=== PATIENT | male | born 1960 | race Caucasian/White ===

== ENCOUNTER 2017-10-31 09:32 | Inpatient (IN) | payer OTHER ==
[~2017-10-31] VITALS: Ht 185.4 cm; Wt 102.5 kg
[2017-10-31 10:01] VITALS: BP 140/91; PULSE 104; RESP 20; TEMP 98.1; O2SAT 95
--- NOTE | 2017-10-31 10:39 | RADRPT ---
EXAM DATE/TIME: 10/31/2017 10:22 [facility] COMPARISON: No previous studies available for comparison. INDICATIONS : Constipation. MEDICAL HISTORY : None. SURGICAL HISTORY : Hernia repair. ENCOUNTER: Initial ACUITY: 1 day PAIN SCORE: 8/10 LOCATION: Bilateral abdomen FINDINGS: Supine view of the abdomen was performed. The abdominal bowel gas pattern is abnormal in appearance. There is a lucent mildly distended small bowel are noted. Gas and stool are present in the colon whi ch is not distended. There is no evidence of mass effect. Post surgical clips are seen in the right upper quadrant presumably from cholecystectomy. CONCLUSION: 1. Air-filled loops of mildly distended small bowel which may represent an early ileus. 2. Postsurgical clips right upper quadrant. Francis Andrade MD on October 31, 2017 at 10:35 Board Certified Radiologist. This report was verified electronically.
[2017-10-31 11:05] VITALS: BP 140/97; PULSE 94; RESP 18; O2SAT 96
[2017-10-31] MEDS ORDERED: LACT1CAP19 (11:09)
[2017-10-31 11:37] LABS: BILIRUBIN, URINE NEG (NEG); BLOOD, URINE NEG (NEG); GLUCOSE,URINE NEG (NEG); HYALINE CAST, URINE 8 /lpf (RARE); KETONE, URINE 10 mg/dL (NEG); MUCUS URINE MOD /lpf (OCC); NITRITE,URINE NEG (NEG); PH, URINE 6.5 (5.0-8.5); SQUAMOUS EPITHELIAL CELL URINE 1 /hpf (0-5); URINE COLOR YELLOW (YELLW/STRAW); URINE LEUKOCYTE ESTERASE NEG (NEG)
[2017-10-31 12:25] LABS: AUTOMATED NEUTROPHIL # 14.2 TH/MM3 (1.8-7.7); BASOPHIL # 0.1 TH/MM3 (0-0.2); BASOPHIL % 0.5 % (0.0-2.0); EOSINOPHIL % 0.1 % (0.0-4.0); HEMATOCRIT 48.7 % (39.0-51.0); LYMPH % 6.2 % (9.0-44.0); MEAN CELL VOLUME 88.6 FL (80.0-100.0); MEAN PLATELET VOLUME 8.3 FL (7.0-11.0); MONO % 5.6 % (0.0-8.0); MONOCYTE # 0.9 TH/MM3 (0-0.9); NEUT % 87.6 % (16.0-70.0); PLATELET COUNT 339 TH/MM3 (150-450); RED CELL DISTRIBUTION WIDTH 13.2 % (11.6-17.2); WHITE BLOOD COUNT 16.2 TH/MM3 (4.0-11.0)
[2017-10-31 12:40] LABS: PROTHROMBIN TIME - PATIENT 10.6 SEC (9.8-11.6)
[2017-10-31 12:45] LABS: ALBUMIN 4.2 GM/DL (3.4-5.0); AST (GOT) 19 U/L (15-37); BICARBONATE 31.8 MEQ/L (21.0-32.0); BLOOD UREA NITROGEN 13 MG/DL (7-18); CALCIUM 10.2 MG/DL (8.5-10.1); CHLORIDE 97 MEQ/L (98-107); CREATININE 1.12 MG/DL (0.60-1.30); GLOMERULAR FILTRATION RATE 68 ML/MIN (>89); GLUCOSE,RANDOM 119 MG/DL (74-106); SODIUM (NA) 138 MEQ/L (136-145)
[2017-10-31 12:48] LABS: ALKALINE PHOSPHATASE 61 U/L (45-117); ALT (GPT) 30 U/L (12-78); TOTAL BILIRUBIN ADULT 1.1 MG/DL (0.2-1.0); TOTAL PROTEIN 8.6 GM/DL (6.4-8.2)
--- NOTE | 2017-10-31 12:50 | PD ---
HPI Chief Complaint: GI Complaint Time Seen by Provider: 11:15 Travel History International Travel<30 days: No Contact w/Intl Traveler<30days: No Traveled to known affect area: No History of Present Illness HPI This is a 56-year-old gentleman with a history of bowel obstructions 4, presents today with complaints of abdominal swelling and nausea vomiting. Patient states that he feels as though he has another bowel obstruction. Patient reports that he has had for previous bowel obstructions and has had mesh placed in his abdominal wall for abdominal wall hernias. He states that he did last time he had a mesh placed he was told that he had multiple adhesions. Patient denies any fevers, chills. He does report that he has passed some gas. He reports bilious type emesis today. There are no other complaints at the time of my examination. PFSH Past Medical History Diabetes: No Diminished Hearing: No GERD: Yes Tetanus Vaccination: > 5 Years Influenza Vaccination: No Past Surgical History Abdominal Surgery: Yes (HERNIA REPAIR X3) Social History Alcohol Use: Yes (BEER DAILY) Tobacco Use: No Substance Use: No Allergies-Medications (Allergen,Severity, Reaction): Coded Allergies: No Known Allergies (Verified Allergy, Severe, 10/31/17) Reported Meds & Prescriptions Reported Meds & Active Scripts Active Reported Probiotic (Lactobacillus Combination No.4) 3 Billion Cell Capsule Review of Systems Except as stated in HPI: all other systems reviewed are Neg General / Constitutional: No: Fever, Chills HENT: No: Headaches, Lightheadedness Cardiovascular: No: Chest Pain or Discomfort, Palpitations Respiratory: No: Cough, Shortness of Breath Gastrointestinal: Positive: Nausea, Vomiting, Abdominal Pain (Distention), No: Diarrhea, Hematemesis Genitourinary: No: Dysuria, Decreased Urinary Output Musculoskeletal: No: Weakness, Pain Neurologic: No: Weakness, Dizziness, Syncope Physical Exam Narrative GENERAL: Well-developed well-nourished male in no acute respiratory distress SKIN: Focused skin assessment warm/dry. HEAD: Atraumatic. Normocephalic. EYES: Pupils equal and round. No scleral icterus. No injection or drainage. ENT: No nasal bleeding or discharge. Mucous membranes pink and moist. NECK: Trachea midline. No JVD. CARDIOVASCULAR: Regular rate and rhythm. No murmur appreciated. RESPIRATORY: No accessory muscle use. Clear to auscultation. Breath sounds equal bilaterally. GASTROINTESTINAL: Abdomen soft, distended. There is no rebound or guarding. Patient does have midline scar. He has palpable mesh in his abdominal wall under his skin. MUSCULOSKELETAL: No obvious deformities. No clubbing. No cyanosis. No edema. NEUROLOGICAL: Awake and alert. No obvious cranial nerve deficits. Motor grossly within normal limits. Normal speech. PSYCHIATRIC: Appropriate mood and affect; insight and judgment normal. Data Data Last Documented VS Vital Signs Date Time Temp Pulse Resp B/P (MAP) Pulse Ox O2 Delivery O2 Flow Rate FiO2 10/31/17 11:05 94 18 140/97 (111) 96 Room Air 10/31/17 10:01 98.1 Orders Orders Complete Blood Count With Diff (10/31/17 10:04) Comprehensive Metabolic Panel (10/31/17 10:04) Urinalysis - C+S If Indicated (10/31/17 10:04) Iv Access Insert/Monitor (10/31/17 10:04) Oxygen Administration (10/31/17 10:04) Oximetry (10/31/17 10:04) Lipase (10/31/17 10:04) Act Partial Throm Time (Ptt) (10/31/17 10:05) Prothrombin Time / Inr (Pt) (10/31/17 10:05) Abdomen, Kub Only (10/31/17 ) Vascular Access Team Consult/P PRN (10/31/17 11:33) Vascular Poc Ultrasound (10/31/17 ) Admit Order (Ed Use Only) (10/31/17 13:37) Labs Laboratory Tests Test 10/31/17 10:30 10/31/17 12:15 Urine Color YELLOW Urine Turbidity CLEAR Urine pH 6.5 Urine Specific [place] 1.019 Urine Protein 30 mg/dL Urine Glucose (UA) NEG mg/dL Urine Ketones 10 mg/dL Urine Occult Blood NEG Urine Nitrite NEG Urine Bilirubin NEG Urine Urobilinogen LESS THAN 2.0 MG/DL Urine Leukocyte Esterase NEG Urine RBC LESS THAN 1 /hpf Urine WBC 1 /hpf Urine Squamous Epithelial Cells 1 /hpf Urine Hyaline Casts 8 /lpf Urine Mucus MOD /lpf Microscopic Urinalysis Comment CULT NOT INDICATED White Blood Count 16.2 TH/MM3 Red Blood Count 5.50 MIL/MM3 Hemoglobin 17.0 GM/DL Hematocrit 48.7 % Mean Corpuscular Volume 88.6 FL Mean Corpuscular Hemoglobin 31.0 PG Mean Corpuscular Hemoglobin Concent 35.0 % Red Cell Distribution Width 13.2 % Platelet Count 339 TH/MM3 Mean Platelet Volume 8.3 FL Neutrophils (%) (Auto) 87.6 % Lymphocytes (%) (Auto) 6.2 % Monocytes (%) (Auto) 5.6 % Eosinophils (%) (Auto) 0.1 % Basophils (%) (Auto) 0.5 % Neutrophils # (Auto) 14.2 TH/MM3 Lymphocytes # (Auto) 1.0 TH/MM3 Monocytes # (Auto) 0.9 TH/MM3 Eosinophils # (Auto) 0.0 TH/MM3 Basophils # (Auto) 0.1 TH/MM3 CBC Comment DIFF FINAL Differential Comment Prothrombin Time 10.6 SEC Prothromb Time International Ratio 1.0 RATIO Activated Partial Thromboplast Time 24.3 SEC Blood Urea Nitrogen 13 MG/DL Creatinine 1.12 MG/DL Random Glucose 119 MG/DL Total Protein 8.6 GM/DL Albumin 4.2 GM/DL Calcium Level 10.2 MG/DL Alkaline Phosphatase 61 U/L Aspartate Amino Transf (AST/SGOT) 19 U/L Alanine Aminotransferase (ALT/SGPT) 30 U/L Total Bilirubin 1.1 MG/DL Sodium Level 138 MEQ/L Potassium Level 3.9 MEQ/L Chloride Level 97 MEQ/L Carbon Dioxide Level 31.8 MEQ/L Anion Gap 9 MEQ/L Estimat Glomerular Filtration Rate 68 ML/MIN Lipase 101 U/L MDM Medical Decision Making Medical Screen Exam Complete: Yes Emergency Medical Condition: Yes Differential Diagnosis Partial versus complete bowel obstruction versus gastroenteritis Narrative Course 56-year-old male with a history of previous small bowel obstructions, hernia repair 3, who presents today with complaints of nausea vomiting. Patient feels as though he has another obstruction. Patient has multiple air-fluid levels noted on plain upright x-ray. He has had an NG tube placed its drained roughly 2300 cc of bilious fluid. He states he feels much improved. White count was 16,000. He has no fever. His belly is soft to touch. He does not appear to have a surgical belly at this time. He will be admitted to the resident service under Dr. Spaulding. The hope is that the NG suction will reverse the obstruction without requiring surgical procedure. Diagnosis Primary Impression: Small bowel obstruction Admitting Information Admitting Physician Requests: Admit Dayton Donis MD Oct 31, 2017 12:50
[2017-10-31 14:23] VITALS: BP 142/78; PULSE 91; RESP 18; O2SAT 97
--- NOTE | 2017-10-31 14:23 | HHI.HP ---
HPI Service Family Medicine Primary Care Physician No Primary Care Physician Admission Diagnosis small bowel obstruction, leukocytosis, Diagnoses: International Travel<30 Days: No Contact w/Intl Traveler<30days: No Known Affected Area: No History of Present Illness Mr. Jewell is a 56-year-old white male with past medical history of small bowel obstruction presenting with vomiting and bloating. He stated that this started Saturday. After he ate dinner he started feeling bloated. He went to sleep, woke up around 2330, and still felt bloated. He stated that it had gotten worse. The vomiting started at 0130 on Saturday morning the vomitus was clear in color, no blood. He vomited a few times at morning and did not vomit during the day. He also had heartburn. He tried drinking water but i the heartburn worse. He also tried to drink vitamin water and sit up. He also tried laying on his left side which helped with the bloating by making him burp. His last bowel movement was yesterday morning. He described it as being hard like pellets and took 2 hours to pass, he usually has a quick bowel movement. Is also been experiencing cramping in his legs throughout the night. He tried walking around a lot to help with the bloating. However, when he threw up again this morning he decided to come into the hospital. The vomit was brown like beef broth. He also had a lot of gurgling in his abdomen and had more heartburn. He describes his abdominal pain as feeling like a lot of pressure that radiates to his back. No fevers or chills, no chest pain, shortness of breath. Has no PCP. Is a history of 4 previous SBO's. The last of which was in June. (Maria Luisa Carter MD R1) Review of Systems Constitutional: DENIES: Fever, Chills Eyes: DENIES: Blurred vision Ears, nose, mouth, throat: DENIES: Nasal discharge Respiratory: COMPLAINS OF: Cough (due to the heartburn), DENIES: Shortness of breath Cardiovascular: DENIES: Chest pain Gastrointestinal: DENIES: Black stools, Bloody stools Genitourinary: DENIES: Dysuria Musculoskeletal: COMPLAINS OF: Muscle aches (cramping in bilateral legs) Integumentary: DENIES: Rash Neurologic: DENIES: Headache, Localized weakness, Paresthesias (Maria Lusia Carter MD R1) Past Family Social History Past Medical History SBOx4- last one was in June Past Surgical History Hernia repair Abdominal surgery to correct volvulus [place] teeth extraction Reported Medications Reported Meds & Active Scripts Active Reported Probiotic (Lactobacillus Combination No.4) 3 Billion Cell Capsule (Maria Luisa Carter MD R1) Allergies: Coded Allergies: No Known Allergies (Verified Allergy, Severe, 10/31/17) Family History Mother- healthy, gallbladder issues Father- from COPD Social History lives with his Works for [employer] has 3 beers a day, no tobacco use, no illicit drug use (Maria Luisa Carter MD R1) Physical Exam Vital Signs Vital Signs Date Time Temp Pulse Resp B/P (MAP) Pulse Ox O2 Delivery O2 Flow Rate FiO2 10/31/17 11:05 94 18 140/97 (111) 96 Room Air 10/31/17 10:56 18 10/31/17 10:01 98.1 104 20 140/91 (107) 95 Physical Exam GENERAL: This is a well-nourished, well-developed patient sitting in bed with NG tube suctioning dark green fluid, in no apparent distress. SKIN: No rashes, ecchymoses or lesions. Cool and dry. HEAD: Atraumatic. Normocephalic. EYES: Pupils equal round and reactive. Extraocular motions intact. No scleral icterus. No drainage. Injected bilaterally ENT: Nose without bleeding, purulent drainage or septal hematoma. Throat without erythema, tonsillar hypertrophy or exudate. Uvula midline. Airway patent. NECK: Trachea midline. No JVD or lymphadenopathy. Supple, nontender, no meningeal signs. CARDIOVASCULAR: Regular rate and rhythm without murmurs, gallops, or rubs. RESPIRATORY: Clear to auscultation. Breath sounds equal bilaterally. No wheezes , rales, or rhonchi. GASTROINTESTINAL: Abdomen soft, non-tender, distended. No hepato-splenomegaly, or palpable masses. No guarding or rebound tenderness. MUSCULOSKELETAL: Extremities without clubbing, cyanosis, or edema. No joint tenderness, effusion, or edema noted. No calf tenderness. NEUROLOGICAL: Awake and alert.Motor and sensory grossly within normal limits. Normal speech. Laboratory Laboratory Tests Test 10/31/17 10:30 10/31/17 12:15 Urine Color YELLOW Urine Turbidity CLEAR Urine pH 6.5 Urine Specific [place] 1.019 Urine Protein 30 Urine Glucose (UA) NEG Urine Ketones 10 Urine Occult Blood NEG Urine Nitrite NEG Urine Bilirubin NEG Urine Urobilinogen LESS THAN 2.0 Urine Leukocyte Esterase NEG Urine RBC LESS THAN 1 Urine WBC 1 Urine Squamous Epithelial Cells 1 Urine Hyaline Casts 8 Urine Mucus MOD Microscopic Urinalysis Comment CULT NOT INDICATED White Blood Count 16.2 Red Blood Count 5.50 Hemoglobin 17.0 Hematocrit 48.7 Mean Corpuscular Volume 88.6 Mean Corpuscular Hemoglobin 31.0 Mean Corpuscular Hemoglobin Concent 35.0 Red Cell Distribution Width 13.2 Platelet Count 339 Mean Platelet Volume 8.3 Neutrophils (%) (Auto) 87.6 Lymphocytes (%) (Auto) 6.2 Monocytes (%) (Auto) 5.6 Eosinophils (%) (Auto) 0.1 Basophils (%) (Auto) 0.5 Neutrophils # (Auto) 14.2 Lymphocytes # (Auto) 1.0 Monocytes # (Auto) 0.9 Eosinophils # (Auto) 0.0 Basophils # (Auto) 0.1 CBC Comment DIFF FINAL Differential Comment Prothrombin Time 10.6 Prothromb Time International Ratio 1.0 Activated Partial Thromboplast Time 24.3 Blood Urea Nitrogen 13 Creatinine 1.12 Random Glucose 119 Total Protein 8.6 Albumin 4.2 Calcium Level 10.2 Alkaline Phosphatase 61 Aspartate Amino Transf (AST/SGOT) 19 Alanine Aminotransferase (ALT/SGPT) 30 Total Bilirubin 1.1 Sodium Level 138 Potassium Level 3.9 Chloride Level 97 Carbon Dioxide Level 31.8 Anion Gap 9 Estimat Glomerular Filtration Rate 68 Lipase 101 (Maria Luisa Carter MD R1) Result Diagram: 10/31/17 1215 10/31/17 1215 Imaging Last Impressions Abdomen X-Ray 10/31/17 0000 Signed Impressions: Service Date/Time: October 10:22 - CONCLUSION: 1. Air- filled loops of mildly distended small bowel which may represent an early ileus. 2. Postsurgical clips right upper quadrant. Francis Andrade MD (Maria Luisa Carter MD R1) Caprini VTE Risk Assessment Caprini VTE Risk Assessment: Mod/High Risk (score >= 2) Caprini Risk Assessment Model Point Value = 1 Point Value = 2 Point Value = 3 Point Value = 5 Age 41-60 Minor surgery BMI > 25 kg/m2 Swollen legs Varicose veins or History of unexplained or recurrent spontaneous Oral contraceptives or hormone replacement Sepsis (< 1 month) Serious lung disease, including pneumonia (< 1 month) Abnormal pulmonary function Acute myocardial infarction Congestive heart failure (< 1 month) History of inflammatory bowel disease Medical patient at bed rest Age 61-74 Arthroscopic surgery Major open surgery (> 45 min) Laparoscopic surgery (> 45 min) Malignancy Confined to bed (> 72 hours) Immobilizing plaster cast Central venous access Age >= 75 History of VTE Family history of VTE Factor V Leiden Prothrombin [id number] Lupus anticoagulant Anticardiolipin antibodies Elevated serum homocysteine Heparin-induced thrombocytopenia Other congenital or acquired thrombophilia Stroke (< 1 month) Elective arthroplasty Hip, pelvis, or leg fracture Acute spinal cord injury (< 1 month) Prophylaxis Regimen Total Risk Factor Score Risk Level Prophylaxis Regimen 0-1 Low Early ambulation 2 Moderate Order ONE of the following: *Sequential Compression Device (SCD) *Heparin 5000 units SQ BID 3-4 Higher Order ONE of the following medications: *Heparin 5000 units SQ TID *Enoxaparin/Lovenox 40 mg SQ daily (WT < 150 kg, CrCl > 30 mL/min) *Enoxaparin/Lovenox 30 mg SQ daily (WT < 150 kg, CrCl > 10-29 mL/min) *Enoxaparin/Lovenox 30 mg SQ BID (WT < 150 kg, CrCl > 30 mL/min) AND/OR *Sequential Compression Device (SCD) 5 or more Highest Order ONE of the following medications: *Heparin 5000 units SQ TID (Preferred with Epidurals) *Enoxaparin/Lovenox 40 mg SQ daily (WT < 150 kg, CrCl > 30 mL/min) *Enoxaparin/Lovenox 30 mg SQ daily (WT < 150 kg, CrCl > 10-29 mL/min) *Enoxaparin/Lovenox 30 mg SQ BID (WT < 150 kg, CrCl > 30 mL/min) AND *Sequential Compression Device (SCD) (Maria Luisa Carter MD R1) Assessment and Plan Assessment and Plan 56-year-old white male with past medical history significant for small bowel obstructions presenting with abdominal distention and vomiting. Likely a repeat small bowel obstruction. He is being admitted to our inpatient service. Code Status Full code Discussed Condition With Dr. Chi (Maria Luisa Carter MD R1) Attending Attestation The patient has been seen and examined. The chart and all resident notes have been reviewed. I agree that inpatient care is appropriate and that a two midnight stay is expected for the reasons documented in the resident history and physical. I have discussed this with the resident and certify the resident s order for inpatient admission. Patient seen and examined. Case reviewed and discussed Please refer to resident H&P for further details regarding HPI, ROS, PMH, SurgHx , FH and SocHx In summary, patient is a pleasant 56yoM with a history of hernia repair and prior SBO. He presents today with a 2 day history of nausea, bilious vomiting and abdominal distention similar to prior episodes. He was informed of adhesions previously, and is concerned that this has occurred again. Patient is seen in the ED, no complaints of pain. GENERAL: wdwn male, NAD SKIN: Warm and dry. NO rashes HEAD: Normocephalic. AT EYES: No scleral icterus. No injection or drainage. NET: OP clear. MMM. NGT to suction. NECK: Supple, trachea midline. No JVD or lymphadenopathy. CARDIOVASCULAR: Regular rate and rhythm without audible murmurs, gallops, or rubs. RESPIRATORY: Breath sounds equal and clear bilaterally. No accessory muscle use. GASTROINTESTINAL: Abdomen soft, distended, more firm in upper quadrants. non- tender, Hypoactive BS in lower quadrants and tinkering BS in upper. MUSCULOSKELETAL: No cyanosis, or edema. No calf tenderness. BACK: Nontender without obvious deformity. No CVA tenderness. NEURO: Awake and alert. Normal speech. CN grossly intact. A/P: 56yoM admitted with: SBO Hx abdominal surgeries EtOh dependence Leukocytosis Hypergylcemia Hypercalcemia NGT to suction IVF Flat/upright AXR in am Ambulation Avoid opiates Monitor Is/Os GS consulted- appreciate recs Patient seen and examined. Case reviewed and discussed Agree with plan of care as discussed with me and documented in the resident note. (Shawna Spaulding MD) Problem List: (1) Small bowel obstruction ICD Codes: K56.609 - Unspecified intestinal obstruction, unspecified as to partial versus complete obstruction Status: Acute Plan: With the significant past medical history of 4 previous small bowel obstructions presenting with abdominal distention and vomiting. This is likely a repeat small bowel obstruction versus ileus versus gastroenteritis. Patient met SIRS criteria upon admission with leukocytosis to 16.2 (neutrophil predominant) and tachycardia. Abdominal x-ray on admission shows air-filled loops of mildly distended small bowel which could may represent an early ileus. -NG tube was placed in ED to low intermittent suction. Placement was confirmed with CXR. -NPO -Monitor I's and O's -Serum pro-calcitonin pending -General surgery consult, appreciate recommendations (2) FEN Status: Acute Plan: Fluids:NS @ 143ml/hr Electrolytes: monitor and replete as needed Nutrition: NPO DVT Prophylaxis: Early ambulation. bilateral SCDs GI Prophylaxis: Not indicated at this time (Maria Luisa Carter MD R1) Physician Certification 2 Midnight Certification Type: Admission for Inpatient Services Order for Inpatient Services The services are ordered in accordance with Medicare regulations or non- Medicare payer requirements, as applicable. In the case of services not specified as inpatient-only, they are appropriately provided as inpatient services in accordance with the 2-midnight benchmark. Estimated LOS (days): 2 days is the estimated time the patient will need to remain in the hospital, assuming treatment plan goals are met and no additional complications. Post-Hospital Plan: Home (Maria Luisa Carter MD R1) Maria Luisa Carter MD R1 Oct 31, 2017 14:23 Shawna Spaulding MD Oct 31, 2017 22:50
[2017-10-31] MEDS ORDERED: NALOXONE HCL 0.4 MG/ML AMP IV PUSH PRN (15:00)
[2017-10-31] MEDS ORDERED: SODIUM CHLORIDE 0.9% FLUSH 10 ML FLUSH IV FLUSH PRN (15:00)
[2017-10-31] MEDS ORDERED: MORPHINE SULFATE 2 MG/ML SYRINGE IV PUSH PRN ×2 (15:00)
[2017-10-31] MEDS: SODIUM CHLORIDE 0.9% FLUSH 10 ML FLUSH IV FLUSH SCH ×2 (15:00→20:34)
[2017-10-31] MEDS ORDERED: ONDANSETRON HCL 4 MG/2 ML VIAL IVP PRN (15:00)
[2017-10-31] MEDS ORDERED: LORazepam 2 MG TAB PO PRN (15:30)
[2017-10-31] MEDS ORDERED: LORazepam 2 MG/ML VIAL IV PUSH PRN ×4 (15:30)
[2017-10-31] MEDS ORDERED: LORazepam 1 MG TAB PO PRN (15:30)
[2017-10-31] MEDS ORDERED: FLUMAZENIL 0.5 MG/5 ML VIAL IV PUSH PRN (15:30)
--- NOTE | 2017-10-31 15:36 | RADRPT ---
EXAM DATE/TIME: 10/31/2017 15:16 [facility] COMPARISON: ABDOMEN KUB ONLY, October 31, 2017, 10:22. INDICATIONS : Evaluate lung status. Pneumonia per order. MEDICAL HISTORY : None. SURGICAL HISTORY : Hernia repair. ENCOUNTER: Initial ACUITY: 1 day PAIN SCORE: 0/10 LOCATION: Bilateral chest FINDINGS: There is an NGT in the stomach. Linear platelike airspace disease in the right lung base. Cardiomedia stinal contours are within normal limits. Bony thorax is intact. CONCLUSION: 1. NGT in the stomach. 2. Platelike airspace disease in the right lung base, presumably atelectasis. Davie Lopez MD on October 31, 2017 at 15:33 Board Certified Radiologist. This report was verified electronically.
[2017-10-31] MEDS: SODIUM CHLOR 0.9% 1000 ML INJ 1,000 ML IV SCH ×3 (16:59→20:34)
--- NOTE | 2017-10-31 18:13 | PD.CONS ---
HPI Service General Surgery Consult Requested By Reason for Consult SBO Primary Care Physician No Primary Care Physician History of Present Illness 56-year-old male with history of multiple previous ventral hernia repairs presents with abdominal pain and vomiting since Saturday. He states that he had a small bowel obstruction treated conservatively in June 2016. Earlier in 2015 was his most recent ventral hernia repair with mesh. He is continuing to pass flatus. He feels significantly improved after placement of NG tube which relieved 2300 cc of fluid. White blood count was elevated at 16,000. Abdominal films showed air-fluid levels. There is also some air in the colon. On review of records it appears he did have a small bowel obstruction 2003 requiring exploratory laparotomy and lysis of adhesions. He had had no previous surgeries prior to this. Review of Systems Constitutional: DENIES: Fever, Chills Eyes: DENIES: Eye inflammation, Eye pain Ears, nose, mouth, throat: DENIES: Oral lesions, Throat pain Respiratory: DENIES: Cough, Shortness of breath Cardiovascular: DENIES: Chest pain, Palpitations Gastrointestinal: COMPLAINS OF: Abdominal pain, Nausea, Vomiting Integumentary: DENIES: Pruritus, Rash Neurologic: DENIES: Paresthesias, Seizures Past Family Social History Past Medical History GERD Past Surgical History Multiple previous ventral hernia repairs with mesh Exploratory laparotomy and lysis of adhesions 2003 Reported Medications Reported Meds & Active Scripts Active Reported Probiotic (Lactobacillus Combination No.4) 3 Billion Cell Capsule Allergies: Coded Allergies: No Known Allergies (Verified Allergy, Severe, 10/31/17) Active Ordered Medications Current Medications Medications (Trade) Dose Ordered Sig/Keith Route Start Time Stop Time Status Last Admin Sodium Chloride 1,000 ml @ 143 mls/hr Q7H IV 10/31/17 14:55 10/31/17 16:59 (NS Flush) 2 ml UNSCH PRN IV FLUSH 10/31/17 15:00 (NS Flush) 2 ml BID IV FLUSH 10/31/17 15:00 (Zofran Inj) 4 mg Q6H PRN IVP 10/31/17 15:00 (Narcan Inj) 0.4 mg UNSCH PRN IV PUSH 10/31/17 15:00 (Morphine Inj) 2 mg Q3H PRN IV PUSH 10/31/17 15:00 (Morphine Inj) 2 mg Q3H PRN IV PUSH 10/31/17 15:00 (Romazicon Inj) 0.2 mg Q1M PRN IV PUSH 10/31/17 15:30 (Ativan) 1 mg Q4H PRN PO 10/31/17 15:30 (Ativan Inj) 1 mg Q4H PRN IV PUSH 10/31/17 15:30 (Ativan) 2 mg Q2H PRN PO 10/31/17 15:30 (Ativan Inj) 2 mg Q2H PRN IV PUSH 10/31/17 15:30 (Ativan Inj) 2 mg Q1H PRN IV PUSH 10/31/17 15:30 (Ativan Inj) 2 mg Q15M PRN IV PUSH 10/31/17 15:30 Family History Noncontributory Social History Drinks about 3 beers a day. No tobacco or drug use. Physical Exam Vital Signs Vital Signs Date Time Temp Pulse Resp B/P (MAP) Pulse Ox O2 Delivery O2 Flow Rate FiO2 10/31/17 17:59 10/31/17 14:23 91 18 142/78 (99) 97 Room Air 10/31/17 11:05 94 18 140/97 (111) 96 Room Air 10/31/17 10:56 18 10/31/17 10:01 98.1 104 20 140/91 (107) 95 Physical Exam GENERAL: Awake and alert. No acute distress. Cooperative. HEAD: Normocephalic. Atraumatic. EYES: Pupils equal round and reactive to light bilaterally. No scleral icterus. ENT: Moist oral mucosa. NG tube in place to suction. NECK: Trachea midline. CHEST: Breathing nonlabored. No respiratory distress. CARDIOVASCULAR: Regular rate and rhythm. ABDOMEN: Soft mildly distended. Not tympanitic. Nontender. EXTREMITIES: No cyanosis or edema. SKIN: Warm, dry, nonjaundiced. Laboratory Laboratory Tests Test 10/31/17 10:30 10/31/17 12:15 Urine Color YELLOW Urine Turbidity CLEAR Urine pH 6.5 Urine Specific Purlear 1.019 Urine Protein 30 Urine Glucose (UA) NEG Urine Ketones 10 Urine Occult Blood NEG Urine Nitrite NEG Urine Bilirubin NEG Urine Urobilinogen LESS THAN 2.0 Urine Leukocyte Esterase NEG Urine RBC LESS THAN 1 Urine WBC 1 Urine Squamous Epithelial Cells 1 Urine Hyaline Casts 8 Urine Mucus MOD Microscopic Urinalysis Comment CULT NOT INDICATED White Blood Count 16.2 Red Blood Count 5.50 Hemoglobin 17.0 Hematocrit 48.7 Mean Corpuscular Volume 88.6 Mean Corpuscular Hemoglobin 31.0 Mean Corpuscular Hemoglobin Concent 35.0 Red Cell Distribution Width 13.2 Platelet Count 339 Mean Platelet Volume 8.3 Neutrophils (%) (Auto) 87.6 Lymphocytes (%) (Auto) 6.2 Monocytes (%) (Auto) 5.6 Eosinophils (%) (Auto) 0.1 Basophils (%) (Auto) 0.5 Neutrophils # (Auto) 14.2 Lymphocytes # (Auto) 1.0 Monocytes # (Auto) 0.9 Eosinophils # (Auto) 0.0 Basophils # (Auto) 0.1 CBC Comment DIFF FINAL Differential Comment Prothrombin Time 10.6 Prothromb Time International Ratio 1.0 Activated Partial Thromboplast Time 24.3 Blood Urea Nitrogen 13 Creatinine 1.12 Random Glucose 119 Total Protein 8.6 Albumin 4.2 Calcium Level 10.2 Alkaline Phosphatase 61 Aspartate Amino Transf (AST/SGOT) 19 Alanine Aminotransferase (ALT/SGPT) 30 Total Bilirubin 1.1 Sodium Level 138 Potassium Level 3.9 Chloride Level 97 Carbon Dioxide Level 31.8 Anion Gap 9 Estimat Glomerular Filtration Rate 68 Lipase 101 Result Diagram: 10/31/17 1215 10/31/17 1215 Imaging Last Impressions Abdomen X-Ray 11/01/17 0600 Signed Impressions: Service Date/Time: Wednesday, November 01, 2017 08:04 - CONCLUSION: 1. NGT in the fundus of the stomach. 2. Findings consistent with partial small bowel obstruction or severe adynamic ileus. Davie Lopez MD Chest X-Ray 10/31/17 0000 Signed Impressions: Service Date/Time: October 21:01 - CONCLUSION: NG tube in the stomach Valentin Posey MD Assessment and Plan Assessment and Plan 56-year-old male who has an evaluation consistent with a small bowel obstruction. Recommend attempted conservative management at this time. Continue NG tube and n.p.o. status. Follow-up labs and exam in the morning. Moshe Llanes MD Oct 31, 2017 18:12
[2017-10-31 20:25] VITALS: BP 129/75; PULSE 95; RESP 17; TEMP 98.2; O2SAT 92
--- NOTE | 2017-10-31 21:25 | RADRPT ---
EXAM DATE/TIME: 10/31/2017 21:01 [facility] COMPARISON: CHEST SINGLE AP, October 31, 2017, 15:16. POC ULTRASOUND VASCULAR ACCESS TEAM, October 31, 2017, 20:01. INDICATIONS : NG tube placement MEDICAL HISTORY : None. SURGICAL HISTORY : Hernia repair. ENCOUNTER: Initial ACUITY: 1 day PAIN SCORE: 0/10 LOCATION: abdomen FINDINGS: Nasogastric tube coils in the stomach. There are mild basilar parenchymal opacities. Cardiac contours are grossly satisfactory. CONCLUSION: NG tube in the stomach Valentin Posey MD on October 31, 2017 at 21:22 Board Certified Radiologist. This report was verified electronically.
[2017-10-31] MEDS ORDERED: KETOROLAC TROMETHAMINE 60 MG/2 ML (IM) VIAL IM PRN (23:00)
[2017-11-01 00:25] VITALS: BP 127/71; PULSE 83; RESP 17; TEMP 98.4; O2SAT 93
[2017-11-01] MEDS: SODIUM CHLOR 0.9% 1000 ML INJ 1,000 ML IV SCH ×3 (03:31→20:37)
[2017-11-01 04:20] VITALS: BP 127/75; PULSE 75; RESP 17; TEMP 98; O2SAT 94
[2017-11-01 06:04] LABS: AUTOMATED NEUTROPHIL # 12.7 TH/MM3 (1.8-7.7); BASOPHIL % 0.2 % (0.0-2.0); EOSINOPHIL % 0.3 % (0.0-4.0); HEMATOCRIT 44.9 % (39.0-51.0); HEMOGLOBIN 15.6 GM/DL (13.0-17.0); LYMPH % 9.7 % (9.0-44.0); LYMPHOCYTE # 1.5 TH/MM3 (1.0-4.8); MEAN CELL VOLUME 90.3 FL (80.0-100.0); MEAN CORPUSCULAR HEMOGLOBIN 31.3 PG (27.0-34.0); MEAN CORPUSCULAR HGB CONC 34.7 % (32.0-36.0); MEAN PLATELET VOLUME 8.6 FL (7.0-11.0); MONO % 9.3 % (0.0-8.0); MONOCYTE # 1.5 TH/MM3 (0-0.9); NEUT % 80.5 % (16.0-70.0); PLATELET COUNT 272 TH/MM3 (150-450); RED BLOOD COUNT 4.97 MIL/MM3 (4.50-5.90); RED CELL DISTRIBUTION WIDTH 13.1 % (11.6-17.2); WHITE BLOOD COUNT 15.8 TH/MM3 (4.0-11.0)
[2017-11-01 06:37] LABS: ALBUMIN 3.8 GM/DL (3.4-5.0); ALKALINE PHOSPHATASE 57 U/L (45-117); ALT (GPT) 48 U/L (12-78); AST (GOT) 35 U/L (15-37); BICARBONATE 30.1 MEQ/L (21.0-32.0); BLOOD UREA NITROGEN 20 MG/DL (7-18); CALCIUM 9.3 MG/DL (8.5-10.1); CHLORIDE 102 MEQ/L (98-107); CREATININE 1.05 MG/DL (0.60-1.30); GLOMERULAR FILTRATION RATE 73 ML/MIN (>89); GLUCOSE,RANDOM 97 MG/DL (74-106); SODIUM (NA) 140 MEQ/L (136-145); TOTAL BILIRUBIN ADULT 1.1 MG/DL (0.2-1.0); TOTAL PROTEIN 7.5 GM/DL (6.4-8.2)
[2017-11-01 08:00] VITALS: BP 132/77; PULSE 71; RESP 15; TEMP 98.3; O2SAT 94
--- NOTE | 2017-11-01 08:27 | RADRPT ---
EXAM DATE/TIME: 11/01/2017 08:04 [facility] COMPARISON: No previous studies available for comparison. INDICATIONS : Obstruction. MEDICAL HISTORY : None. SURGICAL HISTORY : Hernia repair x 4. ENCOUNTER: Subsequent ACUITY: 2 days PAIN SCORE: 0/10 LOCATION: Bilateral Abdomen. FINDINGS: Supine and upright views of the abdomen were performed. There is an NGT in the fundus of the stomach. Multiple loops of dilated air-filled small bowel are noted most prominently in the left upper quadra nt with air-fluid levels. No pneumatosis or free air. Air and stool are noted in the colon and rectum . No abnormal calcifications. Osseous structures are unremarkable. CONCLUSION: 1. NGT in the fundus of the stomach. 2. Findings consistent with partial small bowel obstruction or severe adynamic ileus. Davie Lopez MD on November 01, 2017 at 8:22 Board Certified Radiologist. This report was verified electronically.
[2017-11-01] MEDS: SODIUM CHLORIDE 0.9% FLUSH 10 ML FLUSH IV FLUSH SCH ×2 (09:40→20:37)
[2017-11-01] MEDS ORDERED: POTASSIUM CHLOR 20 MEQ PREMIX 100 ML IV ONE (10:00)
--- NOTE | 2017-11-01 11:35 | HHI.PR ---
Subjective Subjective Notes Some flatus. Had emesis last night and then tube repositioned. 400cc since this am out. Now in correct location on KUB. Not in pain. Objective Vitals/I&O Vital Signs Date Time Temp Pulse Resp B/P (MAP) Pulse Ox O2 Delivery O2 Flow Rate FiO2 11/01/17 08:00 98.3 71 15 132/77 (95) 94 10/31/17 14:23 Room Air Labs Laboratory Tests Test 10/31/17 12:15 10/31/17 21:55 11/01/17 05:21 White Blood Count 16.2 15.8 Red Blood Count 5.50 4.97 Hemoglobin 17.0 15.6 Hematocrit 48.7 44.9 Mean Corpuscular Volume 88.6 90.3 Mean Corpuscular Hemoglobin 31.0 31.3 Mean Corpuscular Hemoglobin Concent 35.0 34.7 Red Cell Distribution Width 13.2 13.1 Platelet Count 339 272 Mean Platelet Volume 8.3 8.6 Neutrophils (%) (Auto) 87.6 80.5 Lymphocytes (%) (Auto) 6.2 9.7 Monocytes (%) (Auto) 5.6 9.3 Eosinophils (%) (Auto) 0.1 0.3 Basophils (%) (Auto) 0.5 0.2 Neutrophils # (Auto) 14.2 12.7 Lymphocytes # (Auto) 1.0 1.5 Monocytes # (Auto) 0.9 1.5 Eosinophils # (Auto) 0.0 0.0 Basophils # (Auto) 0.1 0.0 CBC Comment DIFF FINAL DIFF FINAL Differential Comment Prothrombin Time 10.6 Prothromb Time International Ratio 1.0 Activated Partial Thromboplast Time 24.3 Blood Urea Nitrogen 13 20 Creatinine 1.12 1.05 Random Glucose 119 97 Total Protein 8.6 7.5 Albumin 4.2 3.8 Calcium Level 10.2 9.3 Alkaline Phosphatase 61 57 Aspartate Amino Transf (AST/SGOT) 19 35 Alanine Aminotransferase (ALT/SGPT) 30 48 Total Bilirubin 1.1 1.1 Sodium Level 138 140 Potassium Level 3.9 3.4 Chloride Level 97 102 Carbon Dioxide Level 31.8 30.1 Anion Gap 9 8 Estimat Glomerular Filtration Rate 68 73 Lipase 101 Procalcitonin 0.07 Radiology Last Impressions Abdomen X-Ray 11/01/17 0600 Signed Impressions: Service Date/Time: Wednesday, November 01, 2017 08:04 - CONCLUSION: 1. NGT in the fundus of the stomach. 2. Findings consistent with partial small bowel obstruction or severe adynamic ileus. Davie Lopez MD Chest X-Ray 10/31/17 0000 Signed Impressions: Service Date/Time: October 21:01 - CONCLUSION: NG tube in the stomach Valentin Posey MD Narrative Exam NAD Abd: soft, nontender, NGT 400cc bilious output A/P Assessment and Plan 56 yo M with SBO. WBC remains elevated. Some flatus. Check CT a/p with oral contrast. Cont NGT to suction. Moshe Llanes MD Nov 01, 2017 11:35
[2017-11-01 12:00] VITALS: BP 126/70; PULSE 68; RESP 15; TEMP 97; O2SAT 97
[2017-11-01] MEDS ORDERED: DIATRIZOATE MEGLUM/DIATRIZOATE SOD 9 ML CUP PO ONE (15:00)
[2017-11-01 16:00] VITALS: BP 134/74; PULSE 75; RESP 16; TEMP 97.9; O2SAT 94
--- NOTE | 2017-11-01 17:27 | HHI.FPPN ---
Subjective Remarks Patient seen and examined this morning. He states that he is feeling a little better. He is having decrease pressure in his abdomen. He states that he feels like his abdomen is about the same size, maybe a little smaller. He is still having some heartburn. No fevers or chills, no shortness of breath, no nausea or vomiting since last night, no bowel movement as of yet. He is passing some flatus. (Maria Luisa Carter MD R1) Objective Vitals Vital Signs Date Time Temp Pulse Resp B/P (MAP) Pulse Ox O2 Delivery O2 Flow Rate FiO2 11/01/17 12:00 97.0 68 15 126/70 (88) 97 11/01/17 08:00 98.3 71 15 132/77 (95) 94 11/01/17 04:20 98.0 75 17 127/75 (92) 94 11/01/17 00:25 98.4 83 17 127/71 (89) 93 10/31/17 20:25 98.2 95 17 129/75 (93) 92 10/31/17 17:59 I/O 10/31/17 10/31/17 10/31/17 11/01/17 11/01/17 11/01/17 07:00 15:00 23:00 07:00 15:00 23:00 Intake Total 1300 ml Output Total 1700 ml 0 ml 1000 ml 550 ml Balance -1700 ml 0 ml 300 ml -550 ml Intake Oral 0 ml IV Total 1300 ml Output Urine Total 200 ml Gastric Drainage Total 0 ml 800 ml 550 ml Emesis 1700 ml # Bowel Movements 0 (Maria Luisa Carter MD R1) Result Diagram: 11/01/17 0521 11/01/17 0521 Imaging Last Impressions Abdomen X-Ray 11/01/17 0600 Signed Impressions: Service Date/Time: Wednesday, November 01, 2017 08:04 - CONCLUSION: 1. NGT in the fundus of the stomach. 2. Findings consistent with partial small bowel obstruction or severe adynamic ileus. Davie Lopez MD Chest X-Ray 10/31/17 0000 Signed Impressions: Service Date/Time: October 21:01 - CONCLUSION: NG tube in the stomach Valentin Posey MD Objective Remarks GENERAL: This is a well-nourished, well-developed patient sitting in bed with NG tube suctioning reddish brown fluid, in no apparent distress. SKIN: No rashes, ecchymoses or lesions. Cool and dry. HEAD: Atraumatic. Normocephalic. EYES: Pupils equal round and reactive. Extraocular motions intact. No scleral icterus. No drainage. ENT: Nose without bleeding, purulent drainage or septal hematoma. Throat without erythema, tonsillar hypertrophy or exudate. Uvula midline. Airway patent. NECK: Trachea midline. No JVD or lymphadenopathy. Supple, nontender, no meningeal signs. CARDIOVASCULAR: Regular rate and rhythm without murmurs, gallops, or rubs. RESPIRATORY: Clear to auscultation. Breath sounds equal bilaterally. No wheezes , rales, or rhonchi. GASTROINTESTINAL: Abdomen soft, non-tender, distended but improved from yesterday. No hepato-splenomegaly, or palpable masses. No guarding or rebound tenderness. MUSCULOSKELETAL: Extremities without clubbing, cyanosis, or edema. No joint tenderness, effusion, or edema noted. No calf tenderness. NEUROLOGICAL: Awake and alert.Motor and sensory grossly within normal limits. Normal speech. Procedures NGT placement on 10/31 (Maria Luisa Carter MD R1) A/P Assessment and Plan 56-year-old white male with past medical history significant for small bowel obstructions presenting with abdominal distention and vomiting. Likely a repeat small bowel obstruction. He is being admitted to our inpatient service. Discharge Planning Upon resolution of his symptoms (Maria Luisa Carter MD R1) Attending Attestation Patient seen and examined. Case reviewed and discussed Agree with plan of care as discussed with me and documented in the resident note. (Shawna Spaulding MD) Problem List: (1) Small bowel obstruction ICD Codes: K56.609 - Unspecified intestinal obstruction, unspecified as to partial versus complete obstruction Status: Acute Plan: With the significant past medical history of 4 previous small bowel obstructions presenting with abdominal distention and vomiting. This is likely a repeat small bowel obstruction versus ileus versus gastroenteritis. Patient met SIRS criteria upon admission with leukocytosis to 16.2 (neutrophil predominant) and tachycardia. Abdominal x-ray on admission shows air-filled loops of mildly distended small bowel which could may represent an early ileus. Leukocytosis is improving on 11/01 -NG tube was placed in ED to low intermittent suction. Placement was confirmed with CXR. -NPO -Monitor I's and O's -Serum pro-calcitonin pending -General surgery consult, appreciate recommendations -Nonoperative management -check CT abdomen pelvis with oral contrast (pending) -Gastroccult pending due to color change in suctioned fluid (2) FEN Status: Acute Plan: Fluids:NS @ 143ml/hr Electrolytes: monitor and replete as needed Nutrition: NPO DVT Prophylaxis: Early ambulation. bilateral SCDs GI Prophylaxis: Not indicated at this time (Maria Luisa Carter MD R1) Maria Luisa Carter MD R1 Nov 01, 2017 17:27 Shawna Spaulding MD Nov 04, 2017 09:15
[2017-11-01] MEDS ORDERED: IOHEXOL 350 MG/ML 10 ML VIAL (for RAD DIAG) IVCONTRAST ONE (19:36)
[2017-11-01 20:25] VITALS: BP 132/72; PULSE 72; RESP 16; TEMP 97.6; O2SAT 94
--- NOTE | 2017-11-01 20:31 | RADRPT ---
EXAM DATE/TIME: 11/01/2017 19:29 [facility] COMPARISON: ABDOMEN FLAT & UPRIGHT, November 01, 2017, 8:04. INDICATIONS : Abdominal pain. Small bowel obstruction. IV CONTRAST: 95 cc Omnipaque 350 (iohexol) IV ORAL CONTRAST: Prescribed oral contrast ingested. RADIATION DOSE: 8.90 CTDIvol (mGy) MEDICAL HISTORY : small bowel obstruction SURGICAL HISTORY : hernia surgery ENCOUNTER: Initial ACUITY: 1 day PAIN SCALE: 5/10 LOCATION: abdomen/pelvis TECHNIQUE: Volumetric scanning of the abdomen and pelvis was performed. Using automated exposure control and ad justment of the mA and/or kV according to patient size, radiation dose was kept as low as reasonably achievable to obtain optimal diagnostic quality images. DICOM format image data is available electro nically for review and comparison. FINDINGS: LOWER LUNGS: There is increased density at the lung bases bilaterally being more prominent on the right likely rel ated to atelectasis or consolidation. LIVER: Homogeneous density without lesion. There is no dilation of the biliary tree. No calcified gallston es. There is a small amount of air within the gallbladder at the fundus. SPLEEN: Normal size without lesion. PANCREAS: Within normal limits. KIDNEYS: Normal in size and shape. There is no mass, stone or hydronephrosis. ADRENAL GLANDS: Within normal limits. VASCULAR: There is no aortic aneurysm. BOWEL/MESENTERY: There is no NG tube in the stomach. There is dilatation of the small bowel measuring up to 4.6 cm. Th e distal small bowel is not distended. There is a dilated segment of small bowel in the right upper q uadrant adjacent to surgical clips. The colon is not distended. Oral contrast is seen within the colo n. ABDOMINAL WALL: Within normal limits. RETROPERITONEUM: There is no lymphadenopathy. BLADDER: No wall thickening or mass. REPRODUCTIVE: Within normal limits. INGUINAL: There is no lymphadenopathy or hernia. MUSCULOSKELETAL: There is evidence of prior avascular necrosis at the femoral heads. CONCLUSION: 1. Dilated proximal small bowel and decompressed distal small bowel. This is likely secondary to part ial destruction. Oral contrast is clearly seen within a nondistended colon. The patient does appear t o have some postsurgical change at a small bowel segment in the left upper quadrant with adjacent cli ps. 2. Small focus of air within the gallbladder. The gallbladder is not distended. Calcified stones are not seen. 3. 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 Valentin Jimenez MD on November 01, 2017 at 20:21 Board Certified Radiologist. This report was verified electronically.
[2017-11-02 00:30] VITALS: BP 129/79; PULSE 73; RESP 16; TEMP 98.2; O2SAT 94
[2017-11-02] MEDS: SODIUM CHLOR 0.9% 1000 ML INJ 1,000 ML IV SCH ×3 (03:51→20:50)
[2017-11-02 04:20] VITALS: BP 131/72; PULSE 57; RESP 16; TEMP 97.8; O2SAT 94
[2017-11-02 07:36] LABS: AUTOMATED NEUTROPHIL # 8.5 TH/MM3 (1.8-7.7); BASOPHIL % 0.3 % (0.0-2.0); EOSINOPHIL # 0.1 TH/MM3 (0-0.4); EOSINOPHIL % 0.9 % (0.0-4.0); HEMATOCRIT 39.9 % (39.0-51.0); HEMOGLOBIN 13.8 GM/DL (13.0-17.0); LYMPH % 13.9 % (9.0-44.0); LYMPHOCYTE # 1.6 TH/MM3 (1.0-4.8); MEAN CELL VOLUME 90.5 FL (80.0-100.0); MEAN CORPUSCULAR HEMOGLOBIN 31.2 PG (27.0-34.0); MEAN CORPUSCULAR HGB CONC 34.5 % (32.0-36.0); MEAN PLATELET VOLUME 8.8 FL (7.0-11.0); MONO % 8.8 % (0.0-8.0); NEUT % 76.1 % (16.0-70.0); PLATELET COUNT 233 TH/MM3 (150-450); RED BLOOD COUNT 4.41 MIL/MM3 (4.50-5.90); RED CELL DISTRIBUTION WIDTH 13.2 % (11.6-17.2); WHITE BLOOD COUNT 11.2 TH/MM3 (4.0-11.0)
[2017-11-02 08:00] VITALS: BP 140/80; PULSE 71; RESP 18; TEMP 97.7; O2SAT 96
[2017-11-02 08:03] LABS: ALBUMIN 3.3 GM/DL (3.4-5.0); ALKALINE PHOSPHATASE 59 U/L (45-117); ALT (GPT) 81 U/L (12-78); AST (GOT) 48 U/L (15-37); BICARBONATE 27.7 MEQ/L (21.0-32.0); BLOOD UREA NITROGEN 17 MG/DL (7-18); CALCIUM 8.3 MG/DL (8.5-10.1); CHLORIDE 106 MEQ/L (98-107); CREATININE 0.85 MG/DL (0.60-1.30); GLOMERULAR FILTRATION RATE 93 ML/MIN (>89); GLUCOSE,RANDOM 78 MG/DL (74-106); SODIUM (NA) 144 MEQ/L (136-145); TOTAL BILIRUBIN ADULT 1.2 MG/DL (0.2-1.0); TOTAL PROTEIN 6.8 GM/DL (6.4-8.2)
[2017-11-02] MEDS: SODIUM CHLORIDE 0.9% FLUSH 10 ML FLUSH IV FLUSH SCH ×2 (08:36→20:50)
--- NOTE | 2017-11-02 08:49 | HHI.PR ---
Subjective Subjective Notes Patient is feeling better; denies abdominal pain. Has passed 'a lot' of flatus over the last 16 hours and had a BM earlier this AM. Objective Vitals/I&O Vital Signs Date Time Temp Pulse Resp B/P (MAP) Pulse Ox O2 Delivery O2 Flow Rate FiO2 11/02/17 08:00 97.7 71 18 140/80 (100) 96 10/31/17 14:23 Room Air Labs Laboratory Tests Test 11/02/17 06:15 White Blood Count 11.2 Red Blood Count 4.41 Hemoglobin 13.8 Hematocrit 39.9 Mean Corpuscular Volume 90.5 Mean Corpuscular Hemoglobin 31.2 Mean Corpuscular Hemoglobin Concent 34.5 Red Cell Distribution Width 13.2 Platelet Count 233 Mean Platelet Volume 8.8 Neutrophils (%) (Auto) 76.1 Lymphocytes (%) (Auto) 13.9 Monocytes (%) (Auto) 8.8 Eosinophils (%) (Auto) 0.9 Basophils (%) (Auto) 0.3 Neutrophils # (Auto) 8.5 Lymphocytes # (Auto) 1.6 Monocytes # (Auto) 1.0 Eosinophils # (Auto) 0.1 Basophils # (Auto) 0.0 CBC Comment DIFF FINAL Differential Comment Blood Urea Nitrogen 17 Creatinine 0.85 Random Glucose 78 Total Protein 6.8 Albumin 3.3 Calcium Level 8.3 Alkaline Phosphatase 59 Aspartate Amino Transf (AST/SGOT) 48 Alanine Aminotransferase (ALT/SGPT) 81 Total Bilirubin 1.2 Sodium Level 144 Potassium Level 3.3 Chloride Level 106 Carbon Dioxide Level 27.7 Anion Gap 10 Estimat Glomerular Filtration Rate 93 Date/Time Source Procedure Growth Status 11/01/17 21:50 Gastric Gastric Occult Blood - Final GASTROCCULT POSITIVE Complete Radiology Last Impressions Abdomen X-Ray 11/01/17 0600 Signed Impressions: Service Date/Time: Wednesday, November 01, 2017 08:04 - CONCLUSION: 1. NGT in the fundus of the stomach. 2. Findings consistent with partial small bowel obstruction or severe adynamic ileus. Davie Lopez MD Chest X-Ray 10/31/17 0000 Signed Impressions: Service Date/Time: October 21:01 - CONCLUSION: NG tube in the stomach Valentin Posey MD CT yesterday showed slightly dilated small bowel in the RUQ but there was contrast in the colon. Cardiovascular: Regular Lungs: Clear Abdomen: Non-distended Extremities: No edema A/P Assessment and Plan Impression: Resolving SBO as evidenced by clinical improvement and contrast in the colon on CT. Plan: Will go slow with diet due to his extensive history as well as the dilated bowel in the RUQ. Will clamp NG today Will start clear liquids today. Abdominal x-ray in AM; Will plan to advance diet if he tolerates the NG being clamped and clears. [place] MD Nov 02, 2017 08:49
--- NOTE | 2017-11-02 10:12 | HHI.FPPN ---
Subjective Remarks Patient seen and examined this morning. He states that he is doing well. He is now passing glass and had a bowel movement around 5 AM this morning. He states that it was half liquid half solid. No blood in his stool. No abdominal pain, he still feels that his stomach is distended. No chest pain, no shortness of breath, no nausea or vomiting, no fevers or chills. (Maria Luisa Carter MD R1) Objective Vitals Vital Signs Date Time Temp Pulse Resp B/P (MAP) Pulse Ox O2 Delivery O2 Flow Rate FiO2 11/02/17 08:00 97.7 71 18 140/80 (100) 96 11/02/17 04:20 97.8 57 16 131/72 (91) 94 11/02/17 00:30 98.2 73 16 129/79 (96) 94 11/01/17 20:25 97.6 72 16 132/72 (92) 94 11/01/17 16:00 97.9 75 16 134/74 (94) 94 11/01/17 12:00 97.0 68 15 126/70 (88) 97 I/O 11/01/17 11/01/17 11/01/17 11/02/17 11/02/17 11/02/17 07:00 15:00 23:00 07:00 15:00 23:00 Intake Total 1300 ml 0 ml 1300 ml Output Total 1000 ml 950 ml 100 ml 400 ml Balance 300 ml -950 ml -100 ml 900 ml Intake Oral 0 ml 0 ml 0 ml IV Total 1300 ml 1300 ml Output Urine Total 200 ml 400 ml 400 ml Gastric Drainage Total 800 ml 550 ml 100 ml 0 ml # Voids 1 # Bowel Movements 0 0 1 (Maria Luisa Carter MD R1) Result Diagram: 11/02/17 0615 11/02/17 0615 Imaging Last Impressions Abdomen X-Ray 11/01/17 0600 Signed Impressions: Service Date/Time: Wednesday, November 01, 2017 08:04 - CONCLUSION: 1. NGT in the fundus of the stomach. 2. Findings consistent with partial small bowel obstruction or severe adynamic ileus. Davie Lopez MD Abdomen/Pelvis CT 11/01/17 0000 Signed Impressions: Service Date/Time: Wednesday, November 01, 2017 19:29 - CONCLUSION: 1. Dilated proximal small bowel and decompressed distal small bowel. This is likely secondary to partial destruction. Oral contrast is clearly seen within a nondistended colon. The patient does appear to have some postsurgical change at a small bowel segment in the left upper quadrant with adjacent clips. 2. Small focus of air within the gallbladder. The gallbladder is not distended. Calcified stones are not seen. 3. 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 Valentin Jimenez MD Chest X-Ray 10/31/17 0000 Signed Impressions: Service Date/Time: October 21:01 - CONCLUSION: NG tube in the stomach Valentin Posey MD Objective Remarks GENERAL: This is a well-nourished, well-developed patient sitting in bed with NG tube in place but clamped, in no apparent distress. SKIN: No rashes, ecchymoses or lesions. Cool and dry. HEAD: Atraumatic. Normocephalic. EYES: Pupils equal round and reactive. Extraocular motions intact. No scleral icterus. No drainage. ENT: Nose without bleeding, purulent drainage or septal hematoma. Throat without erythema, tonsillar hypertrophy or exudate. Uvula midline. Airway patent. NECK: Trachea midline. No JVD or lymphadenopathy. Supple, nontender, no meningeal signs. CARDIOVASCULAR: Regular rate and rhythm without murmurs, gallops, or rubs. RESPIRATORY: Clear to auscultation. Breath sounds equal bilaterally. No wheezes , rales, or rhonchi. GASTROINTESTINAL: Abdomen soft, non-tender, distended but improved from admission. No hepato-splenomegaly, or palpable masses. No guarding or rebound tenderness. MUSCULOSKELETAL: Extremities without clubbing, cyanosis, or edema. No joint tenderness, effusion, or edema noted. No calf tenderness. NEUROLOGICAL: Awake and alert.Motor and sensory grossly within normal limits. Normal speech. Procedures NGT placement on 10/31, clamped on 11/02 (Maria Luisa Carter MD R1) A/P Assessment and Plan 56-year-old white male with past medical history significant for small bowel obstructions presenting with abdominal distention and vomiting. Likely a repeat small bowel obstruction. He is being admitted to our inpatient service. Discharge Planning Upon resolution of his symptoms (Maria Luisa Carter MD R1) Attending Attestation Patient seen and examined. Case reviewed and discussed Agree with plan of care as discussed with me and documented in the resident note. (Shawna Spaulding MD) Problem List: (1) Small bowel obstruction ICD Codes: K56.609 - Unspecified intestinal obstruction, unspecified as to partial versus complete obstruction Status: Acute Plan: With the significant past medical history of 4 previous small bowel obstructions presenting with abdominal distention and vomiting. This is likely a repeat small bowel obstruction versus ileus versus gastroenteritis. Patient met SIRS criteria upon admission with leukocytosis to 16.2 (neutrophil predominant) and tachycardia. Abdominal x-ray on admission shows air-filled loops of mildly distended small bowel which could may represent an early ileus. Leukocytosis is improving on 11/01 Patient improving with flatus and a bowel movement this morning. -NG tube was placed in ED to low intermittent suction. Placement was confirmed with CXR. -Clamped on 11/02. -Advanced to clear liquid diet -Monitor I's and O's -Serum pro-calcitonin was 0.07, promising for nonoperative management being successful -General surgery consult, appreciate recommendations -Nonoperative management -Checked CT abdomen pelvis with oral contrast, 11/01 showed dilated proximal small bowel and decompressed distal small bowel. Likely secondary to partial obstruction. -Abdominal x-ray in the morning -Gastroccult obtained due to color change in suctioned fluid, positive -Will obtain Hemoccult, pending -Will follow hemoglobin closely -Will consider consulting GI if any signs of bleeding or hemoglobin drop (2) FEN Status: Acute Plan: Fluids:NS @ 143ml/hr Electrolytes: monitor and replete as needed Nutrition: Clear liquid diet DVT Prophylaxis: Early ambulation. bilateral SCDs GI Prophylaxis: Protonix 40 mg p.o. daily (Maria Luisa Carter MD R1) Maria Luisa Carter MD R1 Nov 02, 2017 10:12 Shawna Spaulding MD Nov 04, 2017 09:15
[2017-11-02 12:47] VITALS: BP 141/72; PULSE 70; RESP 17; TEMP 97.4; O2SAT 97
[2017-11-02 16:00] VITALS: BP 142/82; PULSE 69; RESP 18; TEMP 97.5; O2SAT 96
[2017-11-02] MEDS: PANTOPRAZOLE SOD 40 MG DELAYED RELEASE TAB PO SCH (16:22)
[2017-11-02 20:00] VITALS: BP 141/76; PULSE 70; RESP 18; TEMP 98.2; O2SAT 96
[2017-11-03] VITALS: BP 144/81; PULSE 65; RESP 17; TEMP 98.1; O2SAT 96
[2017-11-03] MEDS: SODIUM CHLOR 0.9% 1000 ML INJ 1,000 ML IV SCH ×4 (05:55→23:48)
[2017-11-03 07:35] LABS: AUTOMATED NEUTROPHIL # 6.3 TH/MM3 (1.8-7.7); BASOPHIL % 0.5 % (0.0-2.0); EOSINOPHIL # 0.2 TH/MM3 (0-0.4); EOSINOPHIL % 2.7 % (0.0-4.0); HEMATOCRIT 39.9 % (39.0-51.0); HEMOGLOBIN 13.8 GM/DL (13.0-17.0); LYMPH % 15.3 % (9.0-44.0); LYMPHOCYTE # 1.3 TH/MM3 (1.0-4.8); MEAN CELL VOLUME 89.5 FL (80.0-100.0); MEAN CORPUSCULAR HEMOGLOBIN 30.9 PG (27.0-34.0); MEAN CORPUSCULAR HGB CONC 34.6 % (32.0-36.0); MEAN PLATELET VOLUME 8.8 FL (7.0-11.0); MONO % 9.2 % (0.0-8.0); MONOCYTE # 0.8 TH/MM3 (0-0.9); NEUT % 72.3 % (16.0-70.0); PLATELET COUNT 247 TH/MM3 (150-450); RED BLOOD COUNT 4.46 MIL/MM3 (4.50-5.90); RED CELL DISTRIBUTION WIDTH 12.7 % (11.6-17.2); WHITE BLOOD COUNT 8.7 TH/MM3 (4.0-11.0)
--- NOTE | 2017-11-03 07:37 | HHI.FPPN ---
Subjective Remarks No acute events overnight. Remains afebrile. Patient has complaints this morning of heartburn. He states he had previously been taking pantoprazole 40 mg twice daily however after moving to [place] he stopped taking this. This previously worked well. He states he has been tolerating his clear liquid diet. Denies abdominal pain. Denies fevers or chills, chest pain, dyspnea, cough. He states he is eager to advance his diet if possible. He reports a BM last night around 19:00. Denies visible blood in stools. Endorses +flatus. (Andi Chi MD R2) Objective Vitals Vital Signs Date Time Temp Pulse Resp B/P (MAP) Pulse Ox O2 Delivery O2 Flow Rate FiO2 11/03/17 00:00 98.1 65 17 144/81 (102) 96 11/02/17 20:00 98.2 70 18 141/76 (97) 96 11/02/17 16:00 97.5 69 18 142/82 (102) 96 11/02/17 12:47 97.4 70 17 141/72 (95) 97 11/02/17 08:00 97.7 71 18 140/80 (100) 96 I/O 11/02/17 11/02/17 11/02/17 11/03/17 11/03/17 11/03/17 07:00 15:00 23:00 07:00 15:00 23:00 Intake Total 1300 ml 1000 ml Output Total 400 ml 600 ml 200 ml Balance 900 ml 400 ml -200 ml Intake Oral 0 ml 1000 ml IV Total 1300 ml Output Urine Total 400 ml 600 ml 200 ml Gastric Drainage Total 0 ml # Voids 1 1 # Bowel Movements 1 1 (Andi Chi MD R2) Result Diagram: 11/03/17 0631 11/02/17 0615 Objective Remarks GENERAL: This is a well-nourished, well-developed patient sitting in wheelchair with NG tube in place but clamped, in no apparent distress. SKIN: No rashes, ecchymoses or lesions. Cool and dry. HEAD: Atraumatic. Normocephalic. EYES: Pupils equal round and reactive. Extraocular motions intact. No scleral icterus. No drainage. ENT: Nose without bleeding, purulent drainage or septal hematoma. Throat without erythema, tonsillar hypertrophy or exudate. Uvula midline. Airway patent. NECK: Trachea midline. No JVD or lymphadenopathy. Supple, nontender, no meningeal signs. CARDIOVASCULAR: Regular rate and rhythm without murmurs, gallops, or rubs. RESPIRATORY: Clear to auscultation. Breath sounds equal bilaterally. No wheezes , rales, or rhonchi. GASTROINTESTINAL: Abdomen soft, non-tender, distended but improved from admission. No hepato-splenomegaly, or palpable masses. No guarding or rebound tenderness. MUSCULOSKELETAL: Extremities without clubbing, cyanosis, or edema. No joint tenderness, effusion, or edema noted. No calf tenderness. NEUROLOGICAL: Awake and alert. Motor and sensory grossly within normal limits. Normal speech. Procedures NGT placement on 10/31, clamped on 11/02 (Andi Chi MD R2) A/P Assessment and Plan 56-year-old white male with past medical history significant for small bowel obstructions presenting with abdominal distention and vomiting. Likely a repeat small bowel obstruction. Discharge Planning Discharge home upon resolution of his symptoms and stable clinical course (Andi Chi MD R2) Attending Attestation Patient seen and examined. Case reviewed and discussed Agree with plan of care as discussed with me and documented in the resident note. (Shawna Spaulding MD) Problem List: (1) Small bowel obstruction ICD Codes: K56.609 - Unspecified intestinal obstruction, unspecified as to partial versus complete obstruction Status: Acute Plan: With the significant past medical history of 4 previous small bowel obstructions presenting with abdominal distention and vomiting. This is likely a repeat small bowel obstruction versus ileus versus gastroenteritis. Patient met SIRS criteria upon admission with leukocytosis to 16.2 (neutrophil predominant) and tachycardia. Abdominal x-ray on admission shows air-filled loops of mildly distended small bowel which could may represent an early ileus. Leukocytosis is improving on 11/01 Patient improving with flatus and +BMs -NG tube was placed in ED to low intermittent suction. Placement was confirmed with CXR. -Clamped on 11/02. -Advanced to full liquid diet today -Monitor I's and O's -Serum pro-calcitonin was 0.07, promising for nonoperative management being successful -General surgery consult, appreciate recommendations -Nonoperative management -Checked CT abdomen pelvis with oral contrast, 11/01 showed dilated proximal small bowel and decompressed distal small bowel. Likely secondary to partial obstruction. -Abdominal x-ray this morning showing no significant change -Gastroccult obtained due to color change in suctioned fluid, positive -Will obtain Hemoccult, pending -Will follow hemoglobin closely -Will consider consulting GI if any signs of bleeding or hemoglobin drop (2) GERD (gastroesophageal reflux disease) ICD Codes: K21.9 - Gastro-esophageal reflux disease without esophagitis Status: Chronic Plan: Increase pantoprazole to 40 mg bid for now (3) FEN Status: Acute Plan: Fluids :NS at 143 cc/hr Electrolytes: monitor and replete as needed Nutrition: Increase to full liquid diet today DVT Prophylaxis: Early ambulation. bilateral SCDs GI Prophylaxis: Protonix 40 mg po bid (Andi Chi MD R2) Problem Qualifiers (1) GERD (gastroesophageal reflux disease): Qualified Codes: K21.9 - Gastro-esophageal reflux disease without esophagitis Andi Chi MD R2 Nov 03, 2017 07:37 Shawna Spaulding MD Nov 04, 2017 09:15
[2017-11-03 08:00] VITALS: BP 144/71; PULSE 69; RESP 17; TEMP 97.7; O2SAT 96
[2017-11-03 08:12] LABS: ALBUMIN 3.2 GM/DL (3.4-5.0); AST (GOT) 21 U/L (15-37); BLOOD UREA NITROGEN 11 MG/DL (7-18); CALCIUM 8.6 MG/DL (8.5-10.1); CHLORIDE 104 MEQ/L (98-107); CREATININE 0.83 MG/DL (0.60-1.30); GLOMERULAR FILTRATION RATE 96 ML/MIN (>89); GLUCOSE,RANDOM 90 MG/DL (74-106); SODIUM (NA) 139 MEQ/L (136-145)
[2017-11-03 08:13] LABS: ALT (GPT) 56 U/L (12-78)
[2017-11-03 08:15] LABS: ALKALINE PHOSPHATASE 55 U/L (45-117); TOTAL PROTEIN 6.6 GM/DL (6.4-8.2)
[2017-11-03] MEDS: PANTOPRAZOLE SOD 40 MG DELAYED RELEASE TAB PO SCH ×2 (09:23→20:48)
[2017-11-03] MEDS: SODIUM CHLORIDE 0.9% FLUSH 10 ML FLUSH IV FLUSH SCH ×2 (09:23→20:48)
--- NOTE | 2017-11-03 09:37 | RADRPT ---
EXAM DATE/TIME: 11/03/2017 09:15 [facility] COMPARISON: ABDOMEN FLAT & UPRIGHT, November 01, 2017, 8:04. INDICATIONS : Abdominal discomfort. Possible obstruction. MEDICAL HISTORY : Small bowel obstruction. SURGICAL HISTORY : Hernia surgery. ENCOUNTER: Subsequent ACUITY: 4 - 6 days PAIN SCORE: 1/10 LOCATION: abdomen. FINDINGS: AP supine and erect views of the abdomen were obtained and demonstrate a nasogastric tube in place wi th tip in the proximal stomach which is unchanged. Abnormal bowel gas pattern is again noted with mul tiple loops of air-containing small bowel several which are borderline in dilatation. These do not ap pear significantly changed. The loops measure up to approximately 5.9 cm. Gas and stool is noted segm entally in the colon. There is no evidence of free air. Contrast is now noted in the distal colon. Th e bony structures remain intact. Lung bases are clear. CONCLUSION: 1. No significant change in an abnormal bowel gas pattern. Small amount of contrast is now noted in t he distal colon. 2. The nasogastric tube remains in place and there is no free air. Poncho Shrestha MD on November 03, 2017 at 9:33 Board Certified Radiologist. This report was verified electronically.
[2017-11-03] MEDS ORDERED: POTASSIUM CHLORIDE 10 MEQ CONTROLLED RELEASE TAB PO ONE (10:30)
--- NOTE | 2017-11-03 10:47 | HHI.PR ---
Subjective Subjective Notes The patient feels much better. He has been walking around without problem. He is tolerating clear liquids with the nasogastric tube clamped without any nausea or vomiting. He continues to pass a large amount of flatus and has had several bowel movements. Objective Vitals/I&O Vital Signs Date Time Temp Pulse Resp B/P (MAP) Pulse Ox O2 Delivery O2 Flow Rate FiO2 11/03/17 08:00 97.7 69 17 144/71 (95) 96 10/31/17 14:23 Room Air Labs Laboratory Tests Test 11/03/17 06:31 White Blood Count 8.7 Red Blood Count 4.46 Hemoglobin 13.8 Hematocrit 39.9 Mean Corpuscular Volume 89.5 Mean Corpuscular Hemoglobin 30.9 Mean Corpuscular Hemoglobin Concent 34.6 Red Cell Distribution Width 12.7 Platelet Count 247 Mean Platelet Volume 8.8 Neutrophils (%) (Auto) 72.3 Lymphocytes (%) (Auto) 15.3 Monocytes (%) (Auto) 9.2 Eosinophils (%) (Auto) 2.7 Basophils (%) (Auto) 0.5 Neutrophils # (Auto) 6.3 Lymphocytes # (Auto) 1.3 Monocytes # (Auto) 0.8 Eosinophils # (Auto) 0.2 Basophils # (Auto) 0.0 CBC Comment DIFF FINAL Differential Comment Blood Urea Nitrogen 11 Creatinine 0.83 Random Glucose 90 Total Protein 6.6 Albumin 3.2 Calcium Level 8.6 Alkaline Phosphatase 55 Aspartate Amino Transf (AST/SGOT) 21 Alanine Aminotransferase (ALT/SGPT) 56 Total Bilirubin 1.0 Sodium Level 139 Potassium Level 3.4 Chloride Level 104 Carbon Dioxide Level 26.0 Anion Gap 9 Estimat Glomerular Filtration Rate 96 Date/Time Source Procedure Growth Status 11/01/17 21:50 Gastric Gastric Occult Blood - Final GASTROCCULT POSITIVE Complete Radiology Last 24 hours Impressions Abdomen X-Ray 11/03/17 0600 Signed Impressions: Service Date/Time: Friday, November 03, 2017 09:15 - CONCLUSION: 1. No significant change in an abnormal bowel gas pattern. Small amount of contrast is now noted in the distal colon. 2. The nasogastric tube remains in place and there is no free air. Poncho Shrestha MD Last Impressions Abdomen X-Ray 11/01/17 0600 Signed Impressions: Service Date/Time: Wednesday, November 01, 2017 08:04 - CONCLUSION: 1. NGT in the fundus of the stomach. 2. Findings consistent with partial small bowel obstruction or severe adynamic ileus. Davie Lopez MD Chest X-Ray 10/31/17 0000 Signed Impressions: Service Date/Time: October 21:01 - CONCLUSION: NG tube in the stomach Valentin Posey MD CT yesterday showed slightly dilated small bowel in the RUQ but there was contrast in the colon. Cardiovascular: Regular Lungs: Clear Abdomen: Non-distended, Non-tender, BS normal A/P Assessment and Plan Impression: Resolving SBO as evidenced by clinical improvement and contrast in the colon seen on repeat flat and upright abdominal films this morning. He still has a slightly abnormal gas pattern but is having significant amounts of flatus and also bowel movements. Plan: The nasogastric tube will be removed today and he will be advanced to a full liquid diet. A flat and upright abdominal film are ordered for the morning. [place] MD Nov 03, 2017 10:47
[2017-11-03 12:28] VITALS: BP 146/88; PULSE 63; RESP 18; TEMP 97.7; O2SAT 97
[2017-11-03 16:34] VITALS: BP 142/85; PULSE 72; RESP 18; TEMP 97.2; O2SAT 99
[2017-11-03 19:00] VITALS: BP 141/75; PULSE 75; RESP 16; TEMP 99; O2SAT 97
[2017-11-03 23:20] VITALS: BP 145/92; PULSE 68; RESP 16; TEMP 97.4; O2SAT 99
[2017-11-04 05:33] LABS: AUTOMATED NEUTROPHIL # 3.9 TH/MM3 (1.8-7.7); BASOPHIL % 0.7 % (0.0-2.0); EOSINOPHIL # 0.2 TH/MM3 (0-0.4); EOSINOPHIL % 3.1 % (0.0-4.0); HEMATOCRIT 38.1 % (39.0-51.0); HEMOGLOBIN 13.4 GM/DL (13.0-17.0); LYMPH % 27.5 % (9.0-44.0); LYMPHOCYTE # 1.8 TH/MM3 (1.0-4.8); MEAN CELL VOLUME 88.8 FL (80.0-100.0); MEAN CORPUSCULAR HEMOGLOBIN 31.2 PG (27.0-34.0); MEAN CORPUSCULAR HGB CONC 35.2 % (32.0-36.0); MEAN PLATELET VOLUME 8.5 FL (7.0-11.0); MONO % 9.9 % (0.0-8.0); MONOCYTE # 0.7 TH/MM3 (0-0.9); NEUT % 58.8 % (16.0-70.0); PLATELET COUNT 240 TH/MM3 (150-450); RED CELL DISTRIBUTION WIDTH 12.8 % (11.6-17.2); WHITE BLOOD COUNT 6.5 TH/MM3 (4.0-11.0)
[2017-11-04 06:00] LABS: AST (GOT) 14 U/L (15-37); BICARBONATE 25.2 MEQ/L (21.0-32.0); BLOOD UREA NITROGEN 7 MG/DL (7-18); CALCIUM 8.5 MG/DL (8.5-10.1); CHLORIDE 106 MEQ/L (98-107); CREATININE 0.76 MG/DL (0.60-1.30); GLOMERULAR FILTRATION RATE 106 ML/MIN (>89); GLUCOSE,RANDOM 84 MG/DL (74-106); SODIUM (NA) 141 MEQ/L (136-145)
[2017-11-04 06:03] LABS: ALKALINE PHOSPHATASE 53 U/L (45-117); ALT (GPT) 45 U/L (12-78); TOTAL BILIRUBIN ADULT 0.8 MG/DL (0.2-1.0)
[2017-11-04 08:00] VITALS: BP 143/73; PULSE 80; RESP 19; TEMP 98.2; O2SAT 97
[2017-11-04] MEDS: SODIUM CHLORIDE 0.9% FLUSH 10 ML FLUSH IV FLUSH SCH (08:06)
[2017-11-04] MEDS: PANTOPRAZOLE SOD 40 MG DELAYED RELEASE TAB PO SCH (08:06)
--- NOTE | 2017-11-04 09:23 | RADRPT ---
EXAM DATE/TIME: 11/04/2017 08:36 [facility] COMPARISON: ABDOMEN FLAT & UPRIGHT, November 03, 2017, 9:15. INDICATIONS : Abdominal pain. MEDICAL HISTORY : SBO SURGICAL HISTORY : Umbilical hernia repair. ENCOUNTER: Subsequent ACUITY: 2 days PAIN SCORE: 0/10 LOCATION: Bilateral Abdomen FINDINGS: There is decreasing small bowel distention. Nasogastric tube has been removed. No free air is identif ied. No organomegaly is evident. There are surgical clips in the right upper quadrant compatible with prior cholecystectomy. CONCLUSION: 1. Resolving small bowel distention Michael Saleh MD on November 04, 2017 at 9:20 Board Certified Radiologist. This report was verified electronically.
[2017-11-04] MEDS: SODIUM CHLOR 0.9% 1000 ML INJ 1,000 ML IV SCH ×2 (09:55→16:55)
[2017-11-04 12:00] VITALS: BP 143/83; PULSE 59; RESP 19; TEMP 97.2; O2SAT 98
--- NOTE | 2017-11-04 12:46 | HHI.PR ---
Subjective Subjective Notes Tolerating fulls without problem. Having BMs. No nausea. Objective Vitals/I&O Vital Signs Date Time Temp Pulse Resp B/P (MAP) Pulse Ox O2 Delivery O2 Flow Rate FiO2 11/04/17 12:00 97.2 59 19 143/83 (103) 98 10/31/17 14:23 Room Air Labs Laboratory Tests Test 11/04/17 04:23 White Blood Count 6.5 Red Blood Count 4.30 Hemoglobin 13.4 Hematocrit 38.1 Mean Corpuscular Volume 88.8 Mean Corpuscular Hemoglobin 31.2 Mean Corpuscular Hemoglobin Concent 35.2 Red Cell Distribution Width 12.8 Platelet Count 240 Mean Platelet Volume 8.5 Neutrophils (%) (Auto) 58.8 Lymphocytes (%) (Auto) 27.5 Monocytes (%) (Auto) 9.9 Eosinophils (%) (Auto) 3.1 Basophils (%) (Auto) 0.7 Neutrophils # (Auto) 3.9 Lymphocytes # (Auto) 1.8 Monocytes # (Auto) 0.7 Eosinophils # (Auto) 0.2 Basophils # (Auto) 0.0 CBC Comment DIFF FINAL Differential Comment Blood Urea Nitrogen 7 Creatinine 0.76 Random Glucose 84 Total Protein 6.0 Albumin 3.0 Calcium Level 8.5 Alkaline Phosphatase 53 Aspartate Amino Transf (AST/SGOT) 14 Alanine Aminotransferase (ALT/SGPT) 45 Total Bilirubin 0.8 Sodium Level 141 Potassium Level 3.5 Chloride Level 106 Carbon Dioxide Level 25.2 Anion Gap 10 Estimat Glomerular Filtration Rate 106 Date/Time Source Procedure Growth Status 11/01/17 21:50 Gastric Gastric Occult Blood - Final GASTROCCULT POSITIVE Complete Radiology Last 24 hours Impressions Abdomen X-Ray 11/03/17 06 Signed Impressions: Service Date/Time: Friday, November 03, 2017 09:15 - CONCLUSION: 1. No significant change in an abnormal bowel gas pattern. Small amount of contrast is now noted in the distal colon. 2. The nasogastric tube remains in place and there is no free air. Poncho Shrestha MD Last Impressions Abdomen X-Ray 4/20/18 0600 Signed Impressions: Service Date/Time: Wednesday, November 01, 2017 08:04 - CONCLUSION: 1. NGT in the fundus of the stomach. 2. Findings consistent with partial small bowel obstruction or severe adynamic ileus. Davie Lopez MD Chest X-Ray 10/31/17 0000 Signed Impressions: Service Date/Time: October 21:01 - CONCLUSION: NG tube in the stomach Valentin Posey MD CT yesterday showed slightly dilated small bowel in the RUQ but there was contrast in the colon. Narrative Exam NAD Abd: soft, nontender A/P Assessment and Plan 56 yo M with SBO. KUB improving. Ambar fulls. + BM. Start soft diet. Ok for dc home today if tolerates soft diet for lunch. F/u with me or Dr. Champagne as needed if recurrent symptoms. Moshe Llanes MD Nov 04, 2017 12:46
[2017-11-04 16:00] VITALS: BP 153/67; PULSE 73; RESP 19; TEMP 97.1; O2SAT 99
[2017-11-04] MEDS ORDERED: PANT40TA3 PO (16:00)
--- NOTE | 2017-11-04 16:02 | HHI.DCPOC ---
Discharge Care Plan Diagnosis: (1) Small bowel obstruction (2) GERD (gastroesophageal reflux disease) Goals to Promote Your Health * To prevent worsening of your condition and complications * To maintain your health at the optimal level Directions to Meet Your Goals If your symptoms begin to recur, contact the office of Dr. Morales at for follow up Take your medications as prescribed Follow your dietary instruction Follow activity as directed Keep your appointments as scheduled Take your immunizations and boosters as scheduled If your symptoms worsen call your PCP, if no PCP go to Urgent Care Center or Emergency Room Smoking is Dangerous to Your Health. Avoid second hand smoke Call the 24-hour hour crisis hotline for domestic abuse at John Zendejas MD R2 Nov 04, 2017 16:02
--- NOTE | 2017-11-04 17:18 | HHI.FPPN ---
Subjective Remarks Delayed entry Patient seen and examined this morning. No acute events overnight. Patient stated that he was tolerating full liquid diet without any issues. Denies any nausea, vomiting, abdominal pain, dysuria, chest pain or shortness of breath. She reported he had a bowel movement last night. Denies any pain. Objective Vitals Vital Signs Date Time Temp Pulse Resp B/P (MAP) Pulse Ox O2 Delivery O2 Flow Rate FiO2 11/04/17 12:00 97.2 59 19 143/83 (103) 98 11/04/17 08:00 98.2 80 19 143/73 (96) 97 11/03/17 23:20 97.4 68 16 145/92 (109) 99 11/03/17 19:00 99.0 75 16 141/75 (97) 97 I/O 11/03/17 11/03/17 11/03/17 11/04/17 11/04/17 11/04/17 06:59 14:59 22:59 06:59 14:59 22:59 Intake Total 1000 ml Output Total 200 ml 700 ml 550 ml Balance -200 ml 300 ml -550 ml Intake Oral 1000 ml Output Urine Total 200 ml 700 ml 550 ml # Voids 1 Result Diagram: 11/04/17 0423 11/04/17 0423 Objective Remarks GENERAL: This is a well-nourished, well-developed patient in no apparent distress. SKIN: No rashes, ecchymoses or lesions. Cool and dry. HEAD: Atraumatic. Normocephalic. ENT: Nose without bleeding, purulent drainage or septal hematoma. NECK: Trachea midline. No JVD or lymphadenopathy. Supple, nontender, no meningeal signs. CARDIOVASCULAR: Normal S1-S2. Regular rate and rhythm without murmurs, gallops , or rubs. RESPIRATORY: Clear to auscultation. Breath sounds equal bilaterally. No wheezes , rales, or rhonchi. GASTROINTESTINAL: Abdomen soft, non-tender, mildly distended but improved from admission. No hepato-splenomegaly, or palpable masses. No guarding or rebound tenderness. MUSCULOSKELETAL: Extremities without clubbing, cyanosis, or edema. No joint tenderness, effusion, or edema noted. No calf tenderness. +2DP pulses bilaterally NEUROLOGICAL: Awake and alert. Motor and sensory grossly within normal limits. Normal speech. Procedures NGT placement on 10/31, clamped on 11/02, removed on 11/04. A/P Assessment and Plan 56-year-old white male with past medical history significant for small bowel obstructions presenting with: Discharge Planning Discharge home upon resolution of his symptoms and stable clinical course Problem List: (1) Small bowel obstruction ICD Codes: K56.609 - Unspecified intestinal obstruction, unspecified as to partial versus complete obstruction Status: Acute Plan: With the significant past medical history of 4 previous small bowel obstructions presenting with abdominal distention and vomiting. This is likely a repeat small bowel obstruction versus ileus versus gastroenteritis. Patient met SIRS criteria upon admission with leukocytosis to 16.2 (neutrophil predominant) and tachycardia. Abdominal x-ray on admission shows air-filled loops of mildly distended small bowel which could may represent an early ileus. Leukocytosis resolved Patient improving with flatus and +BMs -NG tube was placed in ED to low intermittent suction. Placement was confirmed with CXR. -Clamped on 11/02 and removed on 11/04 -Tolerating full liquid diet since yesterday with no issues -General surgery consult, appreciate recommendations -Nonoperative management -Checked CT abdomen pelvis with oral contrast, 11/01 showed dilated proximal small bowel and decompressed distal small bowel. Likely secondary to partial obstruction. -Abdominal x-ray this morning showing resolving SBO (2) GERD (gastroesophageal reflux disease) ICD Codes: K21.9 - Gastro-esophageal reflux disease without esophagitis Status: Chronic Plan: Patient with positive Gastroccult. With complaints of acid reflux, now resolved pantoprazole Increased to 40 mg bid for yesterday H&H stable (3) FEN Status: Acute Plan: Fluids not indicated Electrolytes: monitor and replete as needed Nutrition: full liquid diet, advance per general surgery recommendations DVT Prophylaxis: Early ambulation. bilateral SCDs GI Prophylaxis: Protonix 40 mg po bid Problem Qualifiers (1) GERD (gastroesophageal reflux disease): Qualified Codes: K21.9 - Gastro-esophageal reflux disease without esophagitis Mallory Ashley MD, R1 Nov 04, 2017 17:18
--- NOTE | 2017-11-06 20:58 | HHI.DS ---
Discharge Summary Admission Date Oct 31, 2017 at 13:39 Admitting Diagnosis small bowel obstruction, leukocytosis, (1) Small bowel obstruction Plan: With the significant past medical history of 4 previous small bowel obstructions presenting with abdominal distention and vomiting. This is likely a repeat small bowel obstruction versus ileus versus gastroenteritis. Patient met SIRS criteria upon admission with leukocytosis to 16.2 (neutrophil predominant) and tachycardia. Abdominal x-ray on admission shows air-filled loops of mildly distended small bowel which could may represent an early ileus. Leukocytosis resolved Patient improving with flatus and +BMs -NG tube was placed in ED to low intermittent suction. Placement was confirmed with CXR. -Clamped on 11/02 and removed on 11/04 -Tolerating full liquid diet since yesterday with no issues -General surgery consult, appreciate recommendations -Nonoperative management -Checked CT abdomen pelvis with oral contrast, 11/01 showed dilated proximal small bowel and decompressed distal small bowel. Likely secondary to partial obstruction. -Abdominal x-ray this morning showing resolving SBO ICD Codes: K56.609 - Unspecified intestinal obstruction, unspecified as to partial versus complete obstruction Status: Acute (2) GERD (gastroesophageal reflux disease) Plan: Patient with positive Gastroccult. With complaints of acid reflux, now resolved pantoprazole Increased to 40 mg bid for yesterday H&H stable ICD Codes: K21.9 - Gastro-esophageal reflux disease without esophagitis Status: Chronic Procedures NGT placement on 10/31, clamped on 11/02, removed on 11/04. Brief History Mr. Jewell is a 56-year-old white male with past medical history of small bowel obstruction presenting with vomiting and bloating. He stated that this started Saturday. After he ate dinner he started feeling bloated. He went to sleep, woke up around 2330, and still felt bloated. He stated that it had gotten worse. The vomiting started at 0130 on Saturday morning the vomitus was clear in color, no blood. He vomited a few times at morning and did not vomit during the day. He also had heartburn. He tried drinking water but i the heartburn worse. He also tried to drink vitamin water and sit up. He also tried laying on his left side which helped with the bloating by making him burp. His last bowel movement was yesterday morning. He described it as being hard like pellets and took 2 hours to pass, he usually has a quick bowel movement. Is also been experiencing cramping in his legs throughout the night. He tried walking around a lot to help with the bloating. However, when he threw up again this morning he decided to come into the hospital. The vomit was brown like beef broth. He also had a lot of gurgling in his abdomen and had more heartburn. He describes his abdominal pain as feeling like a lot of pressure that radiates to his back. No fevers or chills, no chest pain, shortness of breath. Has no PCP. Is a history of 4 previous SBO's. The last of which was in June. CBC/BMP: 11/04/17 0423 11/04/17 0423 Significant Findings Laboratory Tests Test 11/04/17 04:23 Red Blood Count 4.30 MIL/MM3 (4.50-5.90) Hematocrit 38.1 % (39.0-51.0) Monocytes (%) (Auto) 9.9 % (0.0-8.0) Total Protein 6.0 GM/DL (6.4-8.2) Albumin 3.0 GM/DL (3.4-5.0) Aspartate Amino Transf (AST/SGOT) 14 U/L (15-37) Imaging Last Impressions Abdomen X-Ray 11/04/17 0800 Signed Impressions: Service Date/Time: Saturday, November 04, 2017 08:36 - CONCLUSION: 1. Resolving small bowel distention Michael Saleh MD Abdomen/Pelvis CT 11/01/17 0000 Signed Impressions: Service Date/Time: Wednesday, November 01, 2017 19:29 - CONCLUSION: 1. Dilated proximal small bowel and decompressed distal small bowel. This is likely secondary to partial destruction. Oral contrast is clearly seen within a nondistended colon. The patient does appear to have some postsurgical change at a small bowel segment in the left upper quadrant with adjacent clips. 2. Small focus of air within the gallbladder. The gallbladder is not distended. Calcified stones are not seen. 3. 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 Valentin Jimenez MD Chest X-Ray 10/31/17 0000 Signed Impressions: Service Date/Time: October 21:01 - CONCLUSION: NG tube in the stomach Valentin Posey MD PE at Discharge GENERAL: This is a well-nourished, well-developed patient in no apparent distress. SKIN: No rashes, ecchymoses or lesions. Cool and dry. HEAD: Atraumatic. Normocephalic. ENT: Nose without bleeding, purulent drainage or septal hematoma. NECK: Trachea midline. No JVD or lymphadenopathy. Supple, nontender, no meningeal signs. CARDIOVASCULAR: Normal S1-S2. Regular rate and rhythm without murmurs, gallops , or rubs. RESPIRATORY: Clear to auscultation. Breath sounds equal bilaterally. No wheezes , rales, or rhonchi. GASTROINTESTINAL: Abdomen soft, non-tender, mildly distended but improved from admission. No hepato-splenomegaly, or palpable masses. No guarding or rebound tenderness. MUSCULOSKELETAL: Extremities without clubbing, cyanosis, or edema. No joint tenderness, effusion, or edema noted. No calf tenderness. +2DP pulses bilaterally NEUROLOGICAL: Awake and alert. Motor and sensory grossly within normal limits. Normal speech. Pt Condition on Discharge: Stable Discharge Disposition: Discharge Home Discharge Instructions DIET: Follow Instructions for: Soft Diet Activities you can perform: Regular-No Restrictions Follow up Referrals: PCP Follow-up New Medications: Pantoprazole (Pantoprazole) 40 Mg Tab 40 MG PO DAILY, #30 TAB Take one tab a day for 14 days, then switch to ranitidine 150 mg twice a day as needed (generic Zantac) Continued Medications: Lactobacillus Combination No.4 (Probiotic) 3 Billion Cell Capsule Mallory Ashley MD, R1 Nov 06, 2017 20:58
== END 2017-11-04 18:33 | disposition home or self-care (01) | DRG 389 ==
LOC: NEPE 09:32 → NEDA 13:39 → N06A 18:11
PROVIDERS: ADMIT Family Medicine; ATTEND Family Medicine
DX: K56.609 Unspecified intestinal obstruction, unspecified as to partial versus complete obstruction (principal); R65.10 Systemic inflammatory response syndrome (SIRS) of non-infectious origin without acute organ dysfunction; E83.52 Hypercalcemia; R73.9 Hyperglycemia, unspecified; F10.20 Alcohol dependence, uncomplicated; K21.9 Gastro-esophageal reflux disease without esophagitis; Z98.890 Other specified postprocedural states
CPT/HCPCS: 43753; 71045; 74018; 74019; 74177; 76937; 80053; 81001; 82270; 82948; 83690; 84145; 85025; 85610; 85730; J2405; J3480; J7030; Q9963; Q9967